=== PATIENT | male | born 1970 | race Asian ===

== ENCOUNTER 2018-01-28 07:27 | Outpatient (CLI) | payer OTHER ==
--- NOTE | 2018-01-28 09:40 | ULT ---
RIGHT UPPER QUADRANT ULTRASOUND: HISTORY: Hepatitis B. COMPARISON: None. FINDINGS: The liver measured 15.2 cm. The liver has a coarse echotexture with slight increased echogenicity co nsistent with some fatty infiltration. The visualized gallbladder is unremarkable. No sonographic Pierre's sign is reported. Common bile d uct measures 4 mm. The pancreas is obscured. The right kidney measures 11.1 x 5.9 x 5.5 cm. IMPRESSION: Findings of chronic liver disease. No focal hepatic lesion evident. POS: [facility]
== END 2018-01-28 07:28 | disposition home or self-care (01) ==
LOC: SCSULT 07:27
PROVIDERS: ATTEND Family Medicine
DX: B18.1 Chronic viral hepatitis B without delta-agent (principal)
CPT/HCPCS: 76705

== ENCOUNTER 2018-07-27 08:40 | Outpatient (CLI) | payer OTHER ==
--- NOTE | 2018-07-27 11:58 | MRI ---
MRI BRAIN WITH AND WITHOUT CONTRAST: HISTORY: Paresthesia, left side. COMPARISON: None. TECHNIQUE: Brain MRI is performed with and without intravenous Gadolinium administration. Multisequential, mult iplanar imaging is performed. FINDINGS: No hemorrhage on the axial gradient echo sequence. No parenchymal mass, mass effect, or midline shift. Brain volume is age appropriate. Cortical reinoso- white matter differentiation is preserved. Ventricles and sulci are patent and symmetric. Central arterial flow voids are maintained. Absent restricted diffusion. No significant T2 or FLAIR white matter hyperintensities. The calvarium has a normal marrow signal intensity. Midline brain parenchymal structures are unremar kable. Adequate aeration of the mastoid air cells. There appears to be a complex cystic lesion along the un dersurface of the left maxillary sinus, likely odontogenic in origin. This lesion measures 1.3 cm cr aniocaudal x 1.1 cm anterior posterior x 1.0 cm mediolateral. No pathologic enhancement of the brain parenchyma. IMPRESSION: 1. No pathologic enhancement of the brain parenchyma. 2. No restricted diffusion. No acute infarct. 3. Complex cystic lesion just inferior to the left maxillary sinus, likely odontogenic in origin. D edicated nonemergent maxillofacial CT is recommended. CODE T POS: [facility]
[2018-07-27] MEDS ORDERED: Gadobenate Dimeglumine 529 MG/1 ML (20ML VIAL) ONE (12:07)
== END 2018-07-27 08:41 | disposition home or self-care (01) ==
LOC: SCSMRI 08:40
PROVIDERS: ATTEND Psychiatry & Neurology Neurology
DX: R20.2 Paresthesia of skin (principal); J34.89 Other specified disorders of nose and nasal sinuses
CPT/HCPCS: 70553; A9579

== ENCOUNTER 2019-01-31 08:27 | Outpatient (CLI) | payer OTHER ==
--- NOTE | 2019-01-31 09:02 | ULT ---
Abdominal Ultrasound: Multiple grayscale images of right upper quadrant obtained according to protocol. INDICATION: Hepatitis B FINDINGS: Liver: There is heterogeneity of the hepatic echotexture. Portions of the liver, notably at the level of the left hepatic lobe are not reliably visualized, limiting assessment. Gallbladder: Normal Gallbladder wall: Normal. Pierre's Sign: Negative Common bile duct is not reliably visualized Ascites: None Spleen: Unremarkable. Pancreas: Obscured by bowel content, limiting assessment. Kidneys: No acute abnormalities. Aorta/IVC: No acute process. IMPRESSION: Limited evaluation due to areas of persistent shadowing and decreased acoustic penetration. Coarsened echotexture of the liver without a discrete mass within the visualized portions. No definite acute intra-abdominal abnormality is otherwise identified.
== END 2019-01-31 08:28 | disposition home or self-care (01) ==
LOC: SCSULT 08:27
DX: Z12.9 Encounter for screening for malignant neoplasm, site unspecified (principal); B18.1 Chronic viral hepatitis B without delta-agent
CPT/HCPCS: 76700